=== PATIENT | male | born 1955 | race Caucasian/White ===

== ENCOUNTER → 2017-01-29 | Outpatient (CLI) | payer OTHER ==
[~2017-01-29] MED LIST: ASP325T PO; ATOR80TA PO; CLOP75TA PO; FOLI0.8T; HYDR-623 PO; LEVO88TA28; LISI10TA PO; LVT.1T PO; MTX2.5T; NEBI2.5T5 PO; OMEG-12 PO; PRD10T PO; PRD5T; PRD5T PO; RNT150T PO; SULF1TAB38; SULF1TAB7 PO; omeprazole PO
== END ==
LOC: CARD 09:01
PROVIDERS: ATTEND Internal Medicine Cardiovascular Disease
DX: I25.10 Atherosclerotic heart disease of native coronary artery without angina pectoris (principal); I63.9 Cerebral infarction, unspecified; I65.23 Occlusion and stenosis of bilateral carotid arteries; I10 Essential (primary) hypertension; E78.2 Mixed hyperlipidemia; I34.0 Nonrheumatic mitral (valve) insufficiency
CPT/HCPCS: 93306

== ENCOUNTER → 2017-01-31 | Outpatient (CLI) | payer OTHER ==
[~2017-01-31] MED LIST changes: +CATHETER FLUSH 10 ML SYR IV PRN
[2017-01-31 09:31] VITALS: BP 126/63
[2017-01-31 09:35] VITALS: BP 118/64
--- NOTE | 2017-02-01 11:15 | STRESS TEST ---
DATE OF SERVICE: 01/31/2017 EXERCISE MYOVIEW STRESS TEST REPORT REFERRING PHYSICIAN: Dr. Beaulieu. Baseline heart rate is 69. Baseline blood pressure 126/63. Baseline EKG is sinus rhythm with no ischemic changes. In summary, the patient was injected with 10.77 mCi of technetium-99 Myoview and the resting images were obtained. Then, the patient started exercising with a baseline heart rate, blood pressure and EKG mentioned above. The patient was able to exercise for a total of 6 minutes 30 seconds on standard Don protocol, achieving maximum heart rate of 147, which is 92% of maximum expected heart rate. With peak exercise level, the EKG was showing minimal nondiagnostic changes. Blood pressure was 150/78. During recovery, heart rate and blood pressure returned to baseline. EKG returned to baseline. The resting and stress images were reviewed and compared in the short axis, horizontal long axis, and vertical long axis views. Review of the images showed good radiotracer uptake with no significant ischemia or infarction. SSS is 3, SDS 3, TID value 1.05. On the gated images, the left ventricle appeared to be normal size with normal contractility. Calculated ejection fraction is 64%. CONCLUSION: 1. Fair exercise tolerance. A total of 6 minutes 30 seconds on standard Don protocol, total of 7.9 METS achieving 92% of maximum expected heart rate. 2. Appropriate heart rate and blood pressure response to exercise, returned to baseline during recovery. 3. Minimal nondiagnostic EKG changes with exercise, returned to baseline during recovery. 4. No ischemia or infarction on SPECT images. 5. Normal left ventricular size with normal contractility. Calculated ejection fraction is 64%. Job ID: [id number] DocumentID: [id number] Dictated Date: 01/31/2017 14:47:39 Bottle Gauger Date: 01/31/2017 19:37:58 Dictated By: ALEA JAVED MD
== END ==
LOC: CARD 07:51
PROVIDERS: ATTEND Internal Medicine Cardiovascular Disease
DX: I25.10 Atherosclerotic heart disease of native coronary artery without angina pectoris (principal); I63.9 Cerebral infarction, unspecified; I65.23 Occlusion and stenosis of bilateral carotid arteries; I10 Essential (primary) hypertension; I34.0 Nonrheumatic mitral (valve) insufficiency; E78.2 Mixed hyperlipidemia
CPT/HCPCS: 78452; 93017

== ENCOUNTER → 2017-04-27 | Outpatient (CLI) | payer OTHER ==
[~2017-04-27] MED LIST changes: -CATHETER FLUSH 10 ML SYR IV PRN
[2017-04-27 10:43] LABS: BUN/CREATININE RATIO 20; CREATININE SERUM 1.07 MG/DL (0.60-1.30); GFR ESTIMATED > 60
== END ==
LOC: LAB 09:45
DX: R91.8 Other nonspecific abnormal finding of lung field (principal)
CPT/HCPCS: 36415; 82565; 84520

== ENCOUNTER → 2017-04-27 | Outpatient (CLI) | payer OTHER ==
--- NOTE | 2017-04-27 11:19 | Diagnostic Imaging Report ---
PROCEDURE: CT sinuses without contrast TECHNIQUE: Multiple contiguous axial images were obtained through the sinuses without the use of intravenous contrast. Coronal and sagittal reformations were then performed. INDICATION: Sinus pressure and cough. No prior studies are available for comparison. Extensive postsurgical changes are identified to the paranasal sinuses. Patient has undergone an ethmoidectomy. There has been resection of the nasal turbinates and uncinate processes. There has been resection of the medial hair of maxillary sinuses. Chronic osseous thickening of the sphenoid and maxillary sinus hair is noted. No discrete mass is identified. Portions of the nasal septum remain. The frontal sinus is hypoplastic. Bilateral globes and orbits are unremarkable. The mastoid air cells are opacified. IMPRESSION: Extensive postsurgical changes to the paranasal sinuses. No discrete mass is detected. Dictated by: Dictated on workstation # [id number]
== END ==
LOC: RAD 04-26 13:08
PROVIDERS: ATTEND Otolaryngology Otolaryngology/Facial Plastic Surgery
DX: J32.4 Chronic pansinusitis (principal); J34.89 Other specified disorders of nose and nasal sinuses; Z98.890 Other specified postprocedural states
CPT/HCPCS: 70486

== ENCOUNTER → 2017-04-27 | Outpatient (CLI) | payer OTHER ==
--- NOTE | 2017-04-27 11:29 | Diagnostic Imaging Report ---
PROCEDURE: CT chest with contrast only. TECHNIQUE: Multiple contiguous axial images were obtained through the chest after administration of intravenous contrast. INDICATION: Isatu's granulomatosis. COMPARISON: Comparison is made with prior CT chest from 05/15/2014. FINDINGS: No axillary lymphadenopathy is detected. Right paratracheal lymph node is stable with short axis measurement of approximately 12 mm. No hilar lymphadenopathy is identified. No pericardial or pleural fluid is detected. Parenchymal evaluation does show interval development of numerous noncalcified nodular masses involving predominantly bilateral upper lobes, with the exception of a nodule in the left lower lobe measuring 10 mm, image 37. The numerous larger masses in the upper lobes are cavitary. Dominant mass in the right apex with cavitation measures approximately 4.6 cm AP x 3.9 cm transverse. Cavitary lesion in the left upper lobe measures 5.1 cm AP x 3.6 cm transverse. There are numerous additional noncavitary masses. The upper abdomen demonstrates hepatic steatosis. The bony structures are nonacute. IMPRESSION: Interval development of multiple bilateral pulmonary masses, majority of which are involving the upper lobes and several of which are cavitary. 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 Continued followup is recommended to confirm clearing. Dictated by: Dictated on workstation # [id number]
== END ==
LOC: RAD 09:41
PROVIDERS: ATTEND Internal Medicine Rheumatology
DX: M31.30 Wegener's granulomatosis without renal involvement (principal); R91.8 Other nonspecific abnormal finding of lung field
CPT/HCPCS: 71260

== ENCOUNTER 2017-05-10 03:04 | Emergency (ER) | payer OTHER ==
[~2017-05-10] VITALS: Ht 167.6 cm; Wt 87.1 kg
--- OUTSIDE RECORDS SUMMARY | 2017-05-10 03:10 | XMS REPORT | Clinical Summary ---
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 If you do not see the information that you expected, contact Release of Information in the Health Information Management department at [phone] for further assistance in locating additional records.[facility] Allergies Active Allergy Reactions Severity Noted Date Comments Cetirizine High 02/27/2006 Allergy recorded in SMS: CETIRIZINE~Reactions: ANAPHYLAXIS Current Medications Prescription Sig. Disp. Refills Start End Date Status Date DOCOSAHEXANOIC ACID/EPA Take by mouth. Active (FISH OIL PO) trimethoprim-sulfamethoxa Take 1 Tab by mouth twice Active zole (BACTRIM) 80-400 mg daily. tablet lisinopril (PRINIVIL; Take 10 mg by mouth Active ZESTRIL) 10 mg tablet daily. PREDNISONE PO Take by mouth. Active clopiDOGrel (PLAVIX) 75 Take 75 mg by mouth Active mg tablet daily. atorvastatin (LIPITOR) 40 Take 40 mg by mouth Active mg tablet daily. nebivolol (BYSTOLIC) 2.5 Take 2.5 mg by mouth Active mg Tab tablet daily. RANITIDINE HCL PO Take 150 mg by mouth. Active aspirin EC 81 mg tablet Take 81 mg by mouth Active daily. levothyroxine (SYNTHROID) Take 112 mcg by mouth Active 112 mcg tablet daily. sildenafil(+) (VIAGRA) 50 Take 1 Tab by mouth as 10 Tab 11 11/25/19 Active mg tablet Needed for Erectile 15 dysfunction. 30-60 min prior to sexual activity Active Problems Problem Noted Date Prostate cancer screening Overview: PSA 07/30/12 0.05 PSA 11/20/14 0.06 L ast Assessment & Plan: PSA stable. Return to clinic in 2 years with PSA. Urethral stricture Overview: SP Tube Placement x3 Deep bulbar stricture and bladder neck stenosis DVIU -- 03/19/2006; Dr. Thurston. Buccal Mucosa Urethroplasty -- 03/19/2006; Dr. Thurston. [id number]: gradually worsening slowing of stream, splayed stream 12/31/14: 3-4mm stricture at proximal prior repair site PVR: 12/31/14: 17 mls L ast Assessment & Plan: Discussed with patient the options for his recurrent urethral stricture. He has done well for nearly ten years after his initial repair. His symptoms are mild at this time. He is not overly eager to pursue another operation. Should we proceed with operative repair, options would be direct visualization internal urethrotomy (DVIU) vs. excision and primary anastomosis (EPA). Would be reasonable to start with DVIU; EPA would give better chance at lasting success, with the downside of a more invasive operation. For now he will consider his options. - Return to clinic 6 months for symptom check. ED (erectile dysfunction) Last Assessment & Plan: New rx for viagra given to patient today. Patient advised on how to take it and possible adverse effects. Family History Medical History Relation Name Comments Cancer-Prostate Brother Bladder Cancer Father Cancer Father Diabetes Father Heart Attack Father Hypertension Father Relation Name Status Comments Brother Father Social History Tobacco Use Types Packs/Day Years Used Date Never Smoker Smokeless Tobacco: Never Used Alcohol Use Drinks/Week oz/Week Comments No Sex Assigned at Date Recorded Not on file Last Filed Vital Signs Vital Sign Reading Time Taken Blood Pressure 123/75 07/08/2015 10:53 AM CDT Pulse 63 07/08/2015 10:53 AM CDT Temperature - - Respiratory Rate - - Oxygen Saturation - - Inhaled Oxygen - - Concentration Weight 95.3 kg (210 lb 3.2 oz) 07/08/2015 10:53 AM CDT Height 167.6 cm (5' 6") 07/08/2015 10:53 AM CDT Body Mass Index 33.93 07/08/2015 10:53 AM CDT Plan of Treatment Health Maintenance Due Date Last Done Comments HEPATITIS C SCREENING 1955 PHYSICAL (COMPREHENSIVE) 11/09/1962 EXAM PERTUSSIS VACCINE 11/09/1966 TETANUS VACCINE 11/09/1972 COLORECTAL CANCER 11/09/2005 SCREENING SHINGLES VACCINE 2015 INFLUENZA VACCINE 11/07/2016 Results Not on filefrom Last 3 Months
--- OUTSIDE RECORDS SUMMARY | 2017-05-10 03:10 | XMS REPORT | Continuity of Care Document ---
Author Author [facility] Address Unknown Phone Unavailable Allergies Active Description Code Type Severity Reaction Onset Reported/Identified Relationship to Patient Clinical Status Yes cetirizine [id number] Drug Allergy Mild N/A 04/08/2009 Medications There is no data. Problems Date Dx Coded Attending Type Code Diagnosis Diagnosed By 05/01/2012 CLAUDIA CRAMER DO V03.82 PPV23 (PNEUMOVAX) DX 05/01/2012 CLAUDIA CRAMER DO V06.1 TDAP DX 05/01/2012 V03.82 PPV23 ( PNEUMOVAX) DX 05/01/2012 V06.1 TDAP DX 11/08/2012 ABISAI PRYOR DO Ot V57.1 PHYSICAL THERAPY NEC 11/08/2012 ABISAI PRYOR DO Ot V58.49 OTHER SPECIFIED AFTERCARE FOLLOWING SURG 02/03/2014 V04.81 FLU SHOT 05/18/2014 ALY JONES, DARRELL Cruz Ot 446.4 05/18/2014 ALY JONES, DARRELL Cruz Ot 786.05 05/18/2014 DARRELL LU MD Ot 786.2 05/18/2014 DARRELL LU MD Ot 793.19 07/29/2014 Ot V72.84 07/29/2014 ALEA JAVED MD Ot 272.4 07/29/2014 ALEA JAVED MD Ot 401.9 07/29/2014 ALEA JAVED MD Ot 414.00 07/29/2014 ALEA JAVED MD Ot 433.10 07/29/2014 ALEA JAVED MD Ot 434.91 07/29/2014 ALEA JAVED MD Ot 272.4 07/29/2014 ALEA JAVED MD Ot 401.9 07/29/2014 ALEA JAVED MD Ot 414.00 07/29/2014 ALEA JAVED MD Ot 433.10 07/29/2014 ALEA JAVED MD Ot 434.91 07/29/2014 DARRELL LU MD Ot 446.4 07/29/2014 DARRELL LU MD Ot 786.05 07/29/2014 DARRELL LU MD Ot 786.2 07/29/2014 DARRELL LU MD Ot 793.19 09/11/2016 ALEA JAVED MD Ot 272.4 HYPERLIPIDEMIA NEC/NOS 09/11/2016 ALEA JAVED MD Ot 401.9 HYPERTENSION NOS 09/11/2016 ALEA JAVED MD Ot 414.00 CORON ATHEROSCLER NOS TYPE VESSEL, NATIV 09/11/2016 ALEA JAVED MD Ot 433.10 CAROTID ARTERY OCCLUSION W O CEREBRAL IN 09/11/2016 ALEA JAVED MD Ot 434.91 CEREBRAL ART OCCLUSION NOS W CEREBRAL IN 10/24/2016 Ot V72.84 EXAM PRE- OPERATIVE NOS 10/24/2016 ALEA JAVED MD Ot 272.4 HYPERLIPIDEMIA NEC/NOS 10/24/2016 ALEA JAVED MD Ot 401.9 HYPERTENSION NOS 10/24/2016 ALEA JAVED MD Ot 414.00 CORON ATHEROSCLER NOS TYPE VESSEL, NATIV 10/24/2016 ALEA JAVED MD Ot 433.10 CAROTID ARTERY OCCLUSION W O CEREBRAL IN 10/24/2016 ALEA JAVED MD Ot 434.91 CEREBRAL ART OCCLUSION NOS W CEREBRAL IN 10/24/2016 DARRELL LU MD Ot 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 10/24/2016 DARRELL LU MD Ot 786.05 SHORTNESS OF BREATH 10/24/2016 DARRELL LU MD Ot 786.2 COUGH 10/24/2016 DARRELL LU MD Ot 793.19 OTHER NONSPECIFIC ABNORMAL FINDING OF [place] 01/22/2017 Ot V72.84 EXAM PRE- OPERATIVE NOS 01/22/2017 ALEA JAVED MD Ot 272.4 HYPERLIPIDEMIA NEC/NOS 01/22/2017 ALEA JAVED MD Ot 401.9 HYPERTENSION NOS 01/22/2017 ALEA JAVED MD Ot 414.00 CORON ATHEROSCLER NOS TYPE VESSEL, NATIV 01/22/2017 ALEA JAVED MD Ot 433.10 CAROTID ARTERY OCCLUSION W O CEREBRAL IN 01/22/2017 ALEA JAVED MD Ot 434.91 CEREBRAL ART OCCLUSION NOS W CEREBRAL IN 01/22/2017 DARRELL LU MD Ot 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 01/22/2017 DARRELL LU MD Ot 786.05 SHORTNESS OF BREATH 01/22/2017 DARRELL LU MD Ot 786.2 COUGH 01/22/2017 DARRELL LU MD Ot 793.19 OTHER NONSPECIFIC ABNORMAL FINDING OF [place] 01/23/2017 Ot V72.84 EXAM PRE- OPERATIVE NOS 01/23/2017 ALEA JAVED MD Ot 272.4 HYPERLIPIDEMIA NEC/NOS 01/23/2017 ALEA JAVED MD Ot 401.9 HYPERTENSION NOS 01/23/2017 ALEA JAVED MD Ot 414.00 CORON ATHEROSCLER NOS TYPE VESSEL, NATIV 01/23/2017 ALEA JAVED MD Ot 433.10 CAROTID ARTERY OCCLUSION W O CEREBRAL IN 01/23/2017 ALEA JAVED MD Ot 434.91 CEREBRAL ART OCCLUSION NOS W CEREBRAL IN 01/23/2017 DARRELL LU MD Ot 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 01/23/2017 DARRELL LU MD Ot 786.05 SHORTNESS OF BREATH 01/23/2017 DARRELL LU MD Ot 786.2 COUGH 01/23/2017 DARRELL LU MD Ot 793.19 OTHER NONSPECIFIC ABNORMAL FINDING OF V[place]ENT[place] 01/29/2017 Ot V72.84 EXAM PRE- OPERATIVE NOS 01/29/2017 ALEA JAVED MD Ot 272.4 HYPERLIPIDEMIA NEC/NOS 01/29/2017 ALEA JAVED MD Ot 401.9 HYPERTENSION NOS 01/29/2017 ALEA JAVED MD Ot 414.00 CORON ATHEROSCLER NOS TYPE VESSEL, NATIV 01/29/2017 ALEA JAVED MD Ot 433.10 CAROTID ARTERY OCCLUSION W O CEREBRAL IN 01/29/2017 ALEA JAVED MD Ot 434.91 CEREBRAL ART OCCLUSION NOS W CEREBRAL IN 01/29/2017 DARRELL LU MD Ot 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 01/29/2017 DARRELL LU MD Ot 786.05 SHORTNESS OF BREATH 01/29/2017 DARRELL LU MD Ot 786.2 COUGH 01/29/2017 DARRELL LU MD Ot 793.19 OTHER NONSPECIFIC ABNORMAL FINDING OF VICENTE 03/07/2017 ALEA JAVED MD Ot E78.2 MIXED HYPERLIPIDEMIA 03/07/2017 ALEA JAVED MD Ot I10 ESSENTIAL (PRIMARY) HYPERTENSION 03/07/2017 ALEA JAVED MD Ot I25.10 ATHSCL HEART DISEASE OF [place] CORONARY 03/07/2017 ALEA JAVED MD Ot I34.0 NONRHEUMATIC MITRAL (VALVE) INSUFFICIENC 03/07/2017 ALEA JAVED MD Ot I63.9 CEREBRAL INFARCTION, UNSPECIFIED 03/07/2017 ALEA JAVED MD Ot I65.23 OCCLUSION AND STENOSIS OF BILATERAL [place] 03/07/2017 ALEA JAVED MD Ot E78.2 MIXED HYPERLIPIDEMIA 03/07/2017 ALEA JAVED MD Ot I10 ESSENTIAL (PRIMARY) HYPERTENSION 03/07/2017 ALEA JAVED MD Ot I25.10 ATHSCL HEART DISEASE OF [place] CORONARY 03/07/2017 ALEA JAVED MD Ot I34.0 NONRHEUMATIC MITRAL (VALVE) INSUFFICIENC 03/07/2017 ALEA JAVED MD Ot I63.9 CEREBRAL INFARCTION, UNSPECIFIED 03/07/2017 ALEA JAVED MD Ot I65.23 OCCLUSION AND STENOSIS OF BILATERAL [place] 03/07/2017 ALEA JAVED MD Ot E78.2 MIXED HYPERLIPIDEMIA 03/07/2017 ALEA JAVED MD Ot I10 ESSENTIAL (PRIMARY) HYPERTENSION 03/07/2017 ALEA JAVED MD Ot I25.10 ATHSCL HEART DISEASE OF [place] CORONARY 03/07/2017 ALEA JAVED MD Ot I34.0 NONRHEUMATIC MITRAL (VALVE) INSUFFICIENC 03/07/2017 ALEA JAVED MD Ot I63.9 CEREBRAL INFARCTION, UNSPECIFIED 03/07/2017 ALEA JAVED MD Ot I65.23 OCCLUSION AND STENOSIS OF BILATERAL [place] 03/07/2017 ALEA JAVED MD Ot E78.2 MIXED HYPERLIPIDEMIA 03/07/2017 ALEA JAVED MD Ot I10 ESSENTIAL (PRIMARY) HYPERTENSION 03/07/2017 ALEA JAVED MD Ot I25.10 ATHSCL HEART DISEASE OF [place] CORONARY 03/07/2017 ALEA JAVED MD Ot I34.0 NONRHEUMATIC MITRAL (VALVE) INSUFFICIENC 03/07/2017 ALEA JAVED MD Ot I63.9 CEREBRAL INFARCTION, UNSPECIFIED 03/07/2017 ALEA JAVED MD Ot I65.23 OCCLUSION AND STENOSIS OF BILATERAL [place] 03/22/2017 Ot V72.84 EXAM PRE- OPERATIVE NOS 03/22/2017 ALEA JAVED MD Ot 272.4 HYPERLIPIDEMIA NEC/NOS 03/22/2017 ALEA JAVED MD Ot 401.9 HYPERTENSION NOS 03/22/2017 ALEA JAVED MD Ot 414.00 CORON ATHEROSCLER NOS TYPE VESSEL, NATIV 03/22/2017 ALEA JAVED MD Ot 433.10 CAROTID ARTERY OCCLUSION W O CEREBRAL IN 03/22/2017 ALEA JAVED MD Ot 434.91 CEREBRAL ART OCCLUSION NOS W CEREBRAL IN 03/22/2017 DARRELL LU MD Ot 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 03/22/2017 DARRELL LU MD Ot 786.05 SHORTNESS OF BREATH 03/22/2017 DARRELL LU MD Ot 786.2 COUGH 03/22/2017 DARRELL LU MD Ot 793.19 OTHER NONSPECIFIC ABNORMAL FINDING OF VICENTE 03/22/2017 ALEA JAVED MD Ot E78.2 MIXED HYPERLIPIDEMIA 03/22/2017 ALEA JAVED MD Ot I10 ESSENTIAL (PRIMARY) HYPERTENSION 03/22/2017 ALEA JAVED MD Ot I25.10 ATHSCL HEART DISEASE OF [place] CORONARY 03/22/2017 ALEA JAVED MD Ot I34.0 NONRHEUMATIC MITRAL (VALVE) INSUFFICIENC 03/22/2017 ALEA JAVED MD Ot I63.9 CEREBRAL INFARCTION, UNSPECIFIED 03/22/2017 ALEA JAVED MD Ot I65.23 OCCLUSION AND STENOSIS OF BILATERAL [place] 03/22/2017 ALEA JAVED MD Ot E78.2 MIXED HYPERLIPIDEMIA 03/22/2017 ALEA JAVED MD Ot I10 ESSENTIAL (PRIMARY) HYPERTENSION 03/22/2017 ALEA JAVED MD Ot I25.10 ATHSCL HEART DISEASE OF [place] CORONARY 03/22/2017 ALEA JAVED MD Ot I34.0 NONRHEUMATIC MITRAL (VALVE) INSUFFICIENC 03/22/2017 ALEA JAVED MD Ot I63.9 CEREBRAL INFARCTION, UNSPECIFIED 03/22/2017 ALEA JAVED MD Ot I65.23 OCCLUSION AND STENOSIS OF BILATERAL [place] 03/23/2017 ALEA JAVED MD Ot E78.2 MIXED HYPERLIPIDEMIA 03/23/2017 ALEA JAVED MD Ot I10 ESSENTIAL (PRIMARY) HYPERTENSION 03/23/2017 ALEA JAVED MD Ot I25.10 ATHSCL HEART DISEASE OF [place] CORONARY 03/23/2017 ALEA JAVED MD Ot I34.0 NONRHEUMATIC MITRAL (VALVE) INSUFFICIENC 03/23/2017 ALEA JAVED MD Ot I63.9 CEREBRAL INFARCTION, UNSPECIFIED 03/23/2017 ALEA JAVED MD Ot I65.23 OCCLUSION AND STENOSIS OF BILATERAL [place] 04/11/2017 ALEA JAVED MD Ot E78.2 MIXED HYPERLIPIDEMIA 04/11/2017 ALEA JAVED MD Ot I10 ESSENTIAL (PRIMARY) HYPERTENSION 04/11/2017 ALEA JAVED MD Ot I25.10 ATHSCL HEART DISEASE OF [place] CORONARY 04/11/2017 ALEA JAVED MD Ot I34.0 NONRHEUMATIC MITRAL (VALVE) INSUFFICIENC 04/11/2017 ALEA JAVED MD Ot I63.9 CEREBRAL INFARCTION, UNSPECIFIED 04/11/2017 ALEA JAVED MD Ot I65.23 OCCLUSION AND STENOSIS OF BILATERAL [place] 04/24/2017 ALEA JAVED MD Ot E78.2 MIXED HYPERLIPIDEMIA 04/24/2017 ALEA JAVED MD Ot I10 ESSENTIAL (PRIMARY) HYPERTENSION 04/24/2017 ALEA JAVED MD Ot I25.10 ATHSCL HEART DISEASE OF [place] CORONARY 04/24/2017 ALEA JAVED MD Ot I34.0 NONRHEUMATIC MITRAL (VALVE) INSUFFICIENC 04/24/2017 ALEA JAVED MD Ot I63.9 CEREBRAL INFARCTION, UNSPECIFIED 04/24/2017 ALEA JAVED MD Ot I65.23 OCCLUSION AND STENOSIS OF BILATERAL [place] 04/25/2017 ALEA JAVED MD Ot E78.2 MIXED HYPERLIPIDEMIA 04/25/2017 ALEA JAVED MD Ot I10 ESSENTIAL (PRIMARY) HYPERTENSION 04/25/2017 ALEA JAVED MD Ot I25.10 ATHSCL HEART DISEASE OF [place] CORONARY 04/25/2017 ALEA JAVED MD Ot I34.0 NONRHEUMATIC MITRAL (VALVE) INSUFFICIENC 04/25/2017 ALEA JAVED MD, Ot I63.9 CEREBRAL INFARCTION, UNSPECIFIED 04/25/2017 ALEA JAVED MD, Ot I65.23 OCCLUSION AND STENOSIS OF BILATERAL [place] 04/30/2017 STEVIE SPRINGER MD, Ot J32.4 CHRONIC PANSINUSITIS 04/30/2017 STEVIE SPRINGER MD, Ot J34.89 OTHER SPECIFIED DISORDERS OF NOSE AND NA 04/30/2017 STEVIE SPRINGER MD, Ot Z98.890 OTHER SPECIFIED POSTPROCEDURAL STATES 04/30/2017 DARRELL LU MD, Ot 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 Results Test Result Range [id number] - 04/27/17 10:13 Serum or plasma urea nitrogen measurement (mass/volume) 21 mg/dL 7-18 Serum or plasma creatinine measurement (mass/volume) 1.07 mg/dL 0.60-1.30 Serum or plasma urea nitrogen/creatinine mass ratio 20 NRG Serum or plasma creatinine measurement with calculation of estimated glomerular filtration rate > NRG Encounters ACCT No. Visit Date/Time Discharge Status Pt. Type Provider Facility Loc./Unit Complaint [id number] 02/03/2014 16:03:00 02/03/2014 23:59:59 CLS Outpatient [id number] 05/01/2012 15:15:00 05/01/2012 23:59:59 CLS Outpatient CLAUDIA CRAMER DO [id number] 04/27/2017 09:45:00 04/27/2017 23:59:59 CLS Outpatient VIDAL MARIE MD [facility] ABNORMAL FINDING OF LUNGS [id number] 04/27/2017 09:41:00 04/27/2017 23:59:59 CLS Outpatient DARRELL LU MD [facility] RAD OTHER NONSPECIFIC ABN FINDING OF LUNG [id number] 04/27/2017 09:25:00 04/27/2017 23:59:59 CLS Outpatient RACHEAL JONES, STEVIE Hanna [facility] CHRONIC PANSINUSITIS [id number] 01/31/2017 07:51:00 01/31/2017 23:59:59 CLS Outpatient ALEA JAVED MD [facility] CARD CAD,CVA,HTN [id number] 01/29/2017 09:01:00 01/29/2017 23:59:59 CLS Outpatient ALEA JAVED MD [facility] CARD CAD,CVA,HTN [id number] 05/15/2014 08:48:00 05/15/2014 23:59:59 CLS Outpatient ALY JONES, DARRELL Cruz [facility] RAD WAGENER'S DISEASE 446.4, COUGH,SOA,ABN CHEST XRAY [id number] 04/28/2014 10:00:00 04/28/2014 23:59:59 CLS Outpatient ALEA JAVED MD [facility] CARD CAD,CVA,HTN,HLP [id number] 04/28/2014 09:57:00 04/28/2014 23:59:59 CLS Outpatient ALEA JAVED MD [facility] CARD CAD,CVA,HTN,HLP [id number] 10/21/2012 15:09:00 11/08/2012 11:31:00 DIS Outpatient ABISAI PRYOR DO [facility] REHAB S/P L SHLD SCOPE OPEN REPAIR ROTATOR CUFF [id number] 07/29/2014 13:22:00 Document Registration
[2017-05-10] MEDS ORDERED: TRANEXAMIC ACID 100 MG/ML 10 ML INJECTION IV ONE ×2 (03:38→03:45)
[2017-05-10 04:00] LABS: BASOPHILS # (AUTO) 0.1 10^3/uL (0.0-0.1); BASOPHILS % (AUTO) 0 % (0-10); EOSINOPHILS # (AUTO) 0.2 10^3/uL (0.0-0.3); EOSINOPHILS % (AUTO) 2 % (0-10); HEMATOCRIT 37 % (40-54); HEMOGLOBIN 12.4 G/DL (13.3-17.7); LYMPHOCYTES # (AUTO) 1.9 X 10^3 (1.0-4.0); LYMPHOCYTES % (AUTO) 16 % (12-44); MEAN CORPUSCULAR HEMOGLOBIN 30 PG (25-34); MEAN CORPUSCULAR HGB CONC 34 G/DL (32-36); MEAN CORPUSCULAR VOLUME 90 FL (80-99); MONOCYTES # (AUTO) 1.4 X 10^3 (0.0-1.0); MONOCYTES % (AUTO) 12 % (0-12); NEUTROPHILS # (AUTO) 8.2 X 10^3 (1.8-7.8); NEUTROPHILS % (AUTO) 70 % (42-75); PLATELET COUNT 347 10^3/uL (130-400); RED BLOOD COUNT 4.08 10^6/uL (4.35-5.85); RED CELL DISTRIBUTION WIDTH 14.1 % (10.0-14.5); WHITE BLOOD COUNT 11.6 10^3/uL (4.3-11.0)
[2017-05-10 04:20] LABS: PROTHROMBIN TIME PATIENT 13.6 SEC (12.2-14.7)
[2017-05-10] MEDS ORDERED: SULF1TAB35 PO (05:57)
--- NOTE | 2017-05-10 05:57 | ED EENT ---
History of Present Illness General Chief Complaint: Nasal Problems Stated Complaint: BLOODY NOSE Nursing Triage Note: pt presents to ed with complaint of nose bleed. states the nose bleed started at 0130 this morning. pt started rotuxin, a chemo drug, for his wegners, this week. Source: patient History of Present Illness Date Seen by Provider: May 10, 2017 Time Seen by Provider: 03:30 Initial Comments PT ARRIVES VIA POV STATES HE WOKE UP AT 0130 AND NOSE WAS BLEEDING--BLOOD COMING FROM BOTH NOSTRILS PT HAS ISATU'S GRANULOMATOSIS, AND PRIMARILY IT HAS AFFECTED HIS NOSE, SINUSES , EARS AND LUNGS. HAS SEPTAL PERFORATION/EROSION WAS DX 14 YEARS AGO ( AT THE TIME OF SINUS SURGERY) , AND IN THE LAST COUPLE OF MONTHS HAS HAD A FLARE HAD CT OF SINUSES AND ENDOSCOPY DONE BY DR. SPRINGER 2 WEEKS AGO. PT WAS STARTED ON RITUXAN ON Sunday05/08/17 ( HAS TAKEN BEFORE, 6 YEARS AGO) AND DID NOT HAVE ANY PROBLEMS PT STATES THE LEFT SIDE OF HIS NOSE HAS BEEN VERY SORE THE LAST FEW DAYS. PT USES DAILY SINUS RINSE AND OCCASIONALLY WILL HAVE SLIGHT BLEEDING, BUT HAS NEVER HAD A NOSE BLEED THAT HAS GONE ON THIS LONG. PT DENIES FEVER. PT TAKES PLAVIX AND PREDNISONE DAILY. PCP: DR. BILLY ENT: DR. 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 PROCESSOR: [place] Allergies and Home Medications Allergies Coded Allergies: cetirizine (Unverified Allergy, Mild, 04/08/09) Home Medications Aspirin 325 Mg Tab, 325 MG PO DAILY, (Reported) Atorvastatin Calcium 80 Mg Tablet, 80 MG PO HS, (Reported) Clopidogrel Bisulfate 75 Mg Tablet, 75 MG PO DAILY, (Reported) Hydrocodone Bit/Acetaminophen 1 Tab Tablet, 1 EACH PO Q 4 - 6 HRS PRN, (Reported ) Levothyroxine Sodium 100 Mcg Tablet, 100 MCG PO DAILY, (Reported) Lisinopril 10 Mg Tablet, 10 MG PO DAILY, (Reported) Nebivolol Hcl 2.5 Mg Tablet, 2.5 MG PO HS, (Reported) [place]ton-3/Dha/Epa/Fish Oil 1 Each Capsule.dr, 3,000 MG PO DAILY, (Reported) TAKES 3 ONCE DAILY Prednisone 5 Mg Tab, 5 MG PO DAILY, (Reported) Ranitidine Hcl 150 Mg Tablet, 150 MG PO BID, (Reported) Sulfamethoxazole/Trimethoprim 1 Each Tablet, 1 TAB PO M,W,F, (Reported) Sulfamethoxazole/Trimethoprim 1 Each Tablet, 1 EACH PO BID, #20 Prescribed by: SABRINA AGUILERA on 05/10/17 0557 Review of Systems Constitutional: no symptoms reported, No chills, No diaphoresis, No fever Eyes: No Symptoms Reported Ears: See HPI Nose: see HPI, epistaxis, pain Mouth: no symptoms reported Throat: no symptoms reported Respiratory: no symptoms reported Cardiovascular: no symptoms reported Neurological: No Symptoms Reported Hematologic/Lymphatic: See HPI Immunological/Allergic: see HPI Past Khgyvvp-Lavvrw-Jkpyqg Hx Patient Social History Alcohol Use: Occasionally Uses Recreational Drug Use: No Smoking Status: Never a Smoker Recent Foreign Travel: No Contact w/Someone Who Travel: No Recent Infectious Disease Expo: No Recent Hopitalizations: No Immunizations Up To Date Date of Pneumonia Vaccine: May 10, 2011 Date of Influenza Vaccine: Feb 08, 2012 Seasonal Allergies Seasonal Allergies: Yes Surgeries History of Surgeries: Yes (SINUS SURGERY 2002; LEFT SHOULDER SCOPE/ROTATOR CUFF REPAIR;SUPRAPUBIC CATH X 3; URETHRAL RECONSTRUCTION; CARDIAC CATH--STENTS X 3; BILATERAL TIB -FIB FRACTURES/ORIF; COLONOSCOPY) Surgeries: Bladder Surgery, Coronary Stent, Orthopedic Respiratory History of Respiratory Disorde: Yes (ISATU'S GRANULOMATOSIS) Respiratory Disorders: Sleep Apnea Cardiovascular History of Cardiac Disorders: Yes (CARDIAC STENTS X 3) Cardiac Disorders: Coronary Artery Disease, High Cholesterol, Hypertension Neurological History of Neurological Disord: No Genitourinary History of Genitourinary Disor: Yes (URETHRAL RECONSTRUCTION; SUPRAPUBIC CATHS X 3) Gastrointestinal History of Gastrointestinal Di: Yes Gastrointestinal Disorders: Gastroesophageal Reflux Musculoskeletal History of Musculoskeletal Dis: Yes (BILATERAL TIB-FIB FRACTURES /ORIF) Endocrine History of Endocrine Disorders: Yes Endocrine Disorders: Hypothyroidsim, Diabetes, Non-Insulin dep HEENT History of HEENT Disorders: Yes (ISATU'S GRANULOMATOSIS--NOSE/SINUSES/EARS/ LUNGS AFFECTED; NASAL AND SINUS DESTRUCTION / SEPTAL PERFORATION DUE TO THIS DISEASE. ) Cancer History of Cancer: No Psychosocial History of Psychiatric Problem: No Integumentary History of Skin or Integumenta: No Blood Transfusions History of Blood Disorders: No Physical Exam Vital Signs Vital Sign - Last 12Hours 05/10/17 03:24 Temp 98.0 Pulse 78 Resp 20 B/P (MAP) 119/75 (90) Pulse Ox 97 O2 Delivery Room Air General Appearance: WD/WN, no apparent distress Eyes: bilateral eye normal inspection Nose: active bleeding (MILD CONSTANT OOZE OF BLOOD, APPEARS TO BE MOSTLY FROM LEFT NARE, ANATOMY IS VERY DISTORTED. NOSE IS DEFORMED AND VERY SMALL EXTERNALLY. ) Mouth/Throat: other (FRESH BLOOD/FRESH CLOT IN POSTERIOR PHARYNX. 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 PT OBSERVED IN ER FOR OVER 3 HOURS AND NO NEW BLEEDING ANTERIORLY OR POSTERIORLY. Progress/Results/Core Measures Results/Orders Lab Results Laboratory Tests Test 05/10/17 03:50 Range/Units White Blood Count 11.6 H 4.3-11.0 10^3/uL Red Blood Count 4.08 L 4.35-5.85 10^6/uL Hemoglobin 12.4 L 13.3-17.7 G/DL Hematocrit 37 L 40-54 % Mean Corpuscular Volume 90 80-99 FL Mean Corpuscular Hemoglobin 30 25-34 PG Mean Corpuscular Hemoglobin Concent 34 32-36 G/DL Red Cell Distribution Width 14.1 10.0-14.5 % Platelet Count 347 130-400 10^3/uL Mean Platelet Volume 9.0 7.4-10.4 FL Neutrophils (%) (Auto) 70 42-75 % Lymphocytes (%) (Auto) 16 12-44 % Monocytes (%) (Auto) 12 0-12 % Eosinophils (%) (Auto) 2 0-10 % Basophils (%) (Auto) 0 0-10 % Neutrophils # (Auto) 8.2 H 1.8-7.8 X 10^3 Lymphocytes # (Auto) 1.9 1.0-4.0 X 10^3 Monocytes # (Auto) 1.4 H 0.0-1.0 X 10^3 Eosinophils # (Auto) 0.2 0.0-0.3 10^3/uL Basophils # (Auto) 0.1 0.0-0.1 10^3/uL Prothrombin Time 13.6 12.2-14.7 SEC INR Comment 1.0 0.8-1.4 Activated Partial Thromboplast Time 26 24-35 SEC My Orders Orders - SABRINA AGUILERA DO Tranexamic Acid Injection (Cyklokapron I (05/10/17 03:45) Tranexamic Acid Injection (Cyklokapron I (05/10/17 03:38) Cbc With Automated Diff (05/10/17 03:42) Protime With Inr (05/10/17 03:42) Partial Thromboplastin Time (05/10/17 03:42) Medications Given in ED Current Medications Medications Dose Ordered Sig/Mart Route Start Time Stop Time Status Last Admin Dose Admin Tranexamic Acid 10 MG/KG ONCE ONCE IV 05/10/17 03:45 05/10/17 03:46 DC 05/10/17 03:41 1,000 MG Vital Signs/I&O Vital Sign - Last 12Hours 05/10/17 05/10/17 03:24 06:17 Temp 98.0 98.0 Pulse 78 88 Resp 20 20 B/P (MAP) 119/75 (90) Pulse Ox 97 100 O2 Delivery Room Air Room Air Blood Pressure Mean: 90 Progress Note : Progress Note PT ADVISED TO FOLLOW UP WITH RELAY TESTER AT DR. SPRINGER'S OFFICE TOMORROW ( DR. SPRINGER OUT OF TOWN UNTIL 05/14/17 ) OR SOONER IF BLEEDING STARTS AGAIN. RETURN TO ER IF BLEEDING IS SEVERE. Departure Impression Impression: Primary Impression: Epistaxis Additional Impression: Isatu's granulomatosis Disposition: 01 HOME, SELF-CARE Condition: Improved Departure-Patient Inst. Referrals: STEVIE SPRINGER MD, WILLIAM J DO (PCP/Family) Primary Care Physician Patient Instructions: Nosebleeds (DC) Add. Discharge Instructions: LEAVE PACKING IN PLACE DO NOT BLOW OR RUB NOSE AND TRY TO AVOID SNEEZING FOLLOW UP WITH DR SPRINGER'S OFFICE TOMORROW FOR RECHECK, OR SOONER IF YOU START TO BLEED AGAIN IF BLEEDING IS SEVERE, RETURN TO ER All discharge instructions reviewed with patient and/or family. Voiced understanding. Scripts Sulfamethoxazole/Trimethoprim (Bactrim Ds Tablet) 1 Each Tablet 1 EACH PO BID, #20 TAB Prov: SABRINA AGUILERA DO 05/10/17 SABRINA AGUILERA DO May 10, 2017 05:57
[2017-05-10 06:17] VITALS: BP 115/88
== END 2017-05-10 06:17 | disposition home or self-care (01) ==
LOC: EDUNIT# 03:04 → ER 03:06
DX: M31.30 Wegener's granulomatosis without renal involvement (principal); I10 Essential (primary) hypertension; E03.9 Hypothyroidism, unspecified; E11.9 Type 2 diabetes mellitus without complications; K21.9 Gastro-esophageal reflux disease without esophagitis; I25.10 Atherosclerotic heart disease of native coronary artery without angina pectoris; G47.30 Sleep apnea, unspecified; Z95.5 Presence of coronary angioplasty implant and graft; Z79.02 Long term (current) use of antithrombotics/antiplatelets; Z79.52 Long term (current) use of systemic steroids; Z79.82 Long term (current) use of aspirin; Z88.8 Allergy status to other drugs, medicaments and biological substances
CPT/HCPCS: 36415; 85025; 85610; 85730; 96360; 99282

== ENCOUNTER → 2017-11-01 | Outpatient (CLI) | payer OTHER ==
[~2017-11-01] MED LIST changes: +CATHETER FLUSH 10 ML SYR IV PRN; +IOHEXOL 350 MG/ML 100 ML (OMNIPAQUE 350) VIAL IV ONE; +NS 250 ML (IVPB) BAG IV ONE; +SULF1TAB35 PO
--- NOTE | 2017-11-01 18:59 | Diagnostic Imaging Report ---
CLINICAL INDICATION: Patient with Isatu's disease. Disease is destroying patient's hearing. Patient says there might be a growth in the right ear. EXAM: CT scan of the IACs performed with 80 cc of Omnipaque 350 IV contrast. Coronal reformatted images are created. COMPARISON: MRI of the brain performed without and with IV contrast dated 05/27/2009. FINDINGS: The bilateral temporal bone structures show complete consolidation of the mastoid air cells and middle ear regions. There is consolidation to the aditus ad antrum bilaterally. There is slight medial concavity of the tympanic membranes bilaterally. There is no evidence of bony erosions or destructive process seen. There are sclerotic changes of the bilateral mastoid air cells which may be from chronic mastoiditis changes. Otherwise, the remainder of the temporal bone structures are unremarkable. The IACs, inner ears, middle ears, and external auditory canals show no other significant abnormality. The bilateral middle ear ossicular chains are intact as visualized. The scutum is intact. The oval and round windows are patent. There is no evidence of semicircular canal dehiscence. The visualized temporal bone portions of cranial nerve VII has normal appearance. No evidence of aberrant vascular structures. The vestibular aqueducts have normal appearance bilaterally. The tegmen tympani and tegmen mastoideum appear intact bilaterally. There is groundglass thickening of the anterior sphenoid wing region anterior skull base which may be related to Isatu's disease from chronic changes. Fibrous osseous defect cannot be completely excluded. There are erosive changes of the ethmoid cavity and widening of the nasal cavity regions. The bilateral maxillary sinuses are partially visualized and show mild thickening and adjacent bony thickening/sclerotic changes. The visualized extracranial soft tissues and paranasal sinuses are unremarkable. There is no enhancing mass. IMPRESSION: 1: There is complete consolidation of the bilateral mastoid air cells and middle ear regions. There is no evidence of erosive or destructive process. 2: Besides chronic bony sclerotic changes possibly from chronic bilateral mastoiditis, the remainder of the temporal bone structures are unremarkable. 3: There is bony thickening and sclerotic changes involving the anterior skull base/sphenoid region which may be from Isatu's granulomatosis. Fibrous osseous defects cannot be completely excluded. Dictated by: Dictated on workstation # [id number]
== END ==
LOC: RAD 16:35
PROVIDERS: ATTEND Otolaryngology
DX: A50.02 Early congenital syphilitic osteochondropathy (principal); M90.80 Osteopathy in diseases classified elsewhere, unspecified site; I87.8 Other specified disorders of veins
CPT/HCPCS: 70481

== ENCOUNTER → 2018-04-06 | Outpatient (CLI) | payer OTHER ==
[~2018-04-06] MED LIST changes: -CATHETER FLUSH 10 ML SYR IV PRN; -IOHEXOL 350 MG/ML 100 ML (OMNIPAQUE 350) VIAL IV ONE; -NS 250 ML (IVPB) BAG IV ONE
--- NOTE | 2018-04-06 10:31 | Diagnostic Imaging Report ---
PROCEDURE: MRI lumbar spine. TECHNIQUE: Multiplanar, multisequence MRI of the lumbar spine was performed without contrast. INDICATION: Back pain radiating to the left. FINDINGS: There is normal height and alignment of the lumbar vertebral bodies. There is mild degenerative disc and facet disease present with no focal disc herniation or bony stenosis seen at any level. No nerve root impingement is seen. There is no mass. There is no acute bony abnormality. IMPRESSION: There is mild degenerative disc and facet disease present but no focal disc herniation or bony stenosis seen. Dictated by: Dictated on workstation # [id number]
== END ==
LOC: RAD 09:27
PROVIDERS: ATTEND Internal Medicine
DX: M51.36 Other intervertebral disc degeneration, lumbar region (principal)
CPT/HCPCS: 72148

== ENCOUNTER 2018-05-31 09:00 | Outpatient (RCR) | payer OTHER | END 2018-07-05 09:26 | disposition home or self-care (01) | PROVIDERS: ATTEND Internal Medicine | DX: M54.5 Low back pain (principal) ==

== ENCOUNTER → 2018-06-03 | Outpatient (CLI) | payer OTHER ==
--- NOTE | 2018-06-03 08:05 | Diagnostic Imaging Report ---
PROCEDURE: US Gallbladder. TECHNIQUE: Multiple real-time grayscale images were obtained over the right upper quadrant in various projections. INDICATION: Right upper quadrant pain with nausea. The gallbladder appeared normal. No wall thickening, abnormal distention or intraluminal sludge or stone. Hepatic echotexture is elevated consistent with at least some degree of fatty infiltration. No intra-or extrahepatic bile duct dilatation is apparent. The pancreas is obscured by gas. The right kidney appeared normal and was unobstructed. IMPRESSION: Probable hepatic steatosis, no biliary abnormality, ascites or fluid collection. Shadowing bowel gas limits visualization of the pancreas and extrahepatic ducts. No acute finding is apparent. Dictated by: Dictated on workstation # [id number]
== END ==
LOC: RAD 06:52
PROVIDERS: ATTEND Internal Medicine
DX: R10.11 Right upper quadrant pain (principal); R11.0 Nausea
CPT/HCPCS: 76705

== ENCOUNTER → 2019-03-19 | Outpatient (CLI) | payer OTHER ==
[~2019-03-19] VITALS: Ht 167 cm; Wt 98.0 kg
[~2019-03-19] MED LIST changes: +CATHETER FLUSH 10 ML SYR IV PRN
[2019-03-19 13:41] VITALS: BP 149/73
--- NOTE | 2019-03-19 23:50 | STRESS TEST ---
DATE OF SERVICE: 03/19/2019 EXERCISE MYOVIEW STRESS TEST REPORT REFERRING PHYSICIAN: Dr. Beaulieu. Baseline heart rate is 66. Baseline blood pressure 149/73. Baseline EKG is sinus rhythm with no ischemic changes. In summary, the patient was injected with 10.35 mCi of technetium-99 Myoview. Then, the patient started exercising with a baseline heart rate, blood pressure and EKG mentioned above. The patient was able to exercise for 7 minutes and 30 seconds on standard Don protocol. With peak exercise level, EKG was showing nondiagnostic changes. During recovery, heart rate and blood pressure returned to baseline. EKG returned to baseline. The resting and stress images were reviewed and compared in the short axis, horizontal long axis, and vertical long axis views. Review of the images showed good radiotracer uptake. There are no significant ischemic changes. SSS is 0. TID value 1.04. On the gated images, the left ventricle appeared to be normal size with normal contractility. Calculated ejection fraction 65%. CONCLUSION: 1. Fair exercise tolerance, a total of 7 minutes 30 seconds on standard Don protocol, total of 9.1 METS achieving 92% of maximum expected heart rate. 2. Baseline EKG abnormality with nondiagnostic changes with exercise returned to baseline during recovery. 3. No significant ischemia or infarction on SPECT images. 4. Normal left ventricular size with normal contractility. Calculated ejection fraction 65%. Job ID: [id number] DocumentID: [id number] Dictated Date: 03/19/2019 17:22:42 Drip Molder Date: 03/19/2019 23:50:13 Dictated By: ALEA JAVED MD
== END ==
LOC: CARD 12:39
PROVIDERS: ATTEND Internal Medicine Cardiovascular Disease
DX: I25.10 Atherosclerotic heart disease of native coronary artery without angina pectoris (principal); I10 Essential (primary) hypertension; I63.9 Cerebral infarction, unspecified; I65.23 Occlusion and stenosis of bilateral carotid arteries
CPT/HCPCS: 78452; 93017

== ENCOUNTER → 2019-03-20 | Outpatient (CLI) | payer OTHER ==
[~2019-03-20] MED LIST changes: -CATHETER FLUSH 10 ML SYR IV PRN
== END ==
LOC: CARD 14:15
PROVIDERS: ATTEND Internal Medicine Cardiovascular Disease
DX: I08.1 Rheumatic disorders of both mitral and tricuspid valves (principal); I63.9 Cerebral infarction, unspecified; I25.10 Atherosclerotic heart disease of native coronary artery without angina pectoris; I10 Essential (primary) hypertension
CPT/HCPCS: 93306

== ENCOUNTER 2019-03-26 09:04 | Outpatient (RCR) | payer OTHER | END 2019-05-20 | disposition home or self-care (01) | PROVIDERS: ATTEND Internal Medicine | DX: M54.32 Sciatica, left side (principal) ==

== ENCOUNTER → 2019-09-12 | Outpatient (CLI) | payer OTHER ==
--- NOTE | 2019-09-12 14:10 | Diagnostic Imaging Report ---
PROCEDURE: MRI lumbar spine. TECHNIQUE: Multiplanar, multisequence MRI of the lumbar spine was performed without contrast. INDICATION: Low back pain. COMPARISON: 04/06/2018. FINDINGS: Trace retrolisthesis grade 1 of L1 on L2 unchanged. Trace retrolisthesis grade 1 L5 on S1 unchanged. Chronic T12 mid and anterior third superior endplate concavity without marrow edema unchanged. Lumbar statures themselves are normal. The lower thoracic cord, the conus, and the nerves of the cauda equina are unremarkable. There is no paravertebral mass, hemorrhage, or fluid collection. T12-L1: No significant stenosis. L1-L2: Bulging disc material effaces the ventral epidural fat but does not result in a substantial degree of canal stenosis. There is borderline mild biforaminal narrowing. L2-L3: This level and disc stable and unremarkable without stenosis. L3-L4: Disc bulge diffusely is present. This results in a mild degree of bilateral foraminal narrowing. No significant canal or recess encroachment. L4-L5: Disc bulge right paramedian has progressed in the interim, with disc material now extending upwards posterior to the L4 vertebral body. This indents the ventral epidural fat and mildly effaces the ventral thecal sac. There is mild canal stenosis. No encroachment upon the lateral recesses. There is moderate left and mild right neuroforaminal stenosis having increased. L5-S1: Disc desiccation, bulge, and endplate osteophytes result in slight indentation of the ventral thecal sac but not significantly narrowing the spinal canal. This patient has unchanged moderate degrees of bilateral foraminal narrowing. IMPRESSION: Progressive disc displacement at L4-L5 with increased foraminal stenoses. No high-grade canal narrowing. Stable multilevel grade 1 listhesis and stable old T12 superior endplate compression. Dictated by: Dictated on workstation # [id number]
== END ==
LOC: RAD 09:55
PROVIDERS: ATTEND Nurse Practitioner
DX: M51.16 Intervertebral disc disorders with radiculopathy, lumbar region (principal); M43.16 Spondylolisthesis, lumbar region; M48.061 Spinal stenosis, lumbar region without neurogenic claudication
CPT/HCPCS: 72148

== ENCOUNTER → 2019-09-19 | Outpatient (CLI) | payer OTHER ==
[~2019-09-19] MED LIST changes: +CATHETER FLUSH 10 ML SYR IV PRN
--- NOTE | 2019-09-19 12:39 | Diagnostic Imaging Report ---
EXAMINATION: Nuclear medicine hepatobiliary scan INDICATION: Right upper quadrant pain There are no prior nuclear medicine studies available for comparison. The gallbladder ultrasound exam performed on 06/03/2018 failed to show any sign of cholelithiasis or acute cholecystitis. This study was performed following administration of 5.3 mCi Choletec. One can of ensure was also given for the ejection fraction calculation. There is uptake of the radiotracer by the gallbladder for 30 minutes. This would weight against the diagnosis of acute cholecystitis. There is also extension of the radiotracer into the small bowel indicating the common bile duct is not obstructed. The ejection fraction is 53.9%. And within normal limits. IMPRESSION: 1. There is no evidence for acute cholecystitis or for obstruction of the common bile duct. 2. The ejection fraction is 53.9% and within normal limits. Dictated by: Dictated on workstation # [id number]
== END ==
LOC: CARD 09:51
PROVIDERS: ATTEND Internal Medicine
DX: R10.13 Epigastric pain (principal); R10.11 Right upper quadrant pain
CPT/HCPCS: 78227; A9537

== ENCOUNTER → 2021-01-19 | Outpatient (CLI) | payer MEDICARE, OTHER ==
[~2021-01-19] MED LIST changes: -CATHETER FLUSH 10 ML SYR IV PRN; -SULF1TAB35 PO; +SULF1TAB38 PO
== END ==
LOC: LABNPT 06:38
PROVIDERS: ATTEND Otolaryngology Otolaryngology/Facial Plastic Surgery
DX: Z01.812 Encounter for preprocedural laboratory examination (principal); G47.33 Obstructive sleep apnea (adult) (pediatric); U07.1 COVID-19
CPT/HCPCS: 87635

== ENCOUNTER 2021-01-21 19:53 | Outpatient (CLI) | payer MEDICARE, OTHER | END 2021-01-22 06:11 | disposition home or self-care (01) | LOC: SLEEP 19:53 | PROVIDERS: ATTEND Otolaryngology Otolaryngology/Facial Plastic Surgery | DX: G47.33 Obstructive sleep apnea (adult) (pediatric) (principal) | CPT/HCPCS: 95811 ==

== ENCOUNTER → 2022-05-03 | Outpatient (CLI) | payer MEDICARE, OTHER ==
[~2022-05-03] MED LIST changes: +CATHETER FLUSH 10 ML SYR IVP PRN
[2022-05-03 09:35] VITALS: BP 153/81
[2022-05-03 09:47] VITALS: BP 167/97
--- NOTE | 2022-05-03 13:35 | Cardiology Stress Test Report ---
Stress Test Report Date of Procedure/Referring: Date of Procedure: May 03, 2022 PCP Greg Beaulieu DO Admitting Physician Admitting Physician: Attending Physician: Ema Streeter MD Baseline Blood Pressure: Blood Pressure Systolic: 167 Blood Pressure Diastolic: 97 Vital Signs Date Time Temp Pulse Resp B/P (MAP) Pulse Ox O2 Delivery O2 Flow Rate FiO2 05/03/22 09:35 68 153/81 (105) 05/03/22 09:47 19 99 Baseline Vital Signs Vital Signs Date Time Temp Pulse Resp B/P (MAP) Pulse Ox O2 Delivery O2 Flow Rate FiO2 05/03/22 09:35 68 153/81 (105) 05/03/22 09:47 19 99 Baseline EKG: Baseline EKG: NSR Summary: After explaining the procedure and details to the patient, he signed the consent and was brought to the stress nuclear laboratory. Patient exercised on standard Don protocol, EKG, heart rate and blood pressure were monitored continuously, resting and stress doses of radio tracer were injected, imaging was acquired and reviewed in the short axis, horizontal long axis and vertical long axis views Patient was able to exercise for a total of 5 minutes on Don protocol, METs 208/101 Maximum heart rate 130 Maximum blood pressure 208/101 Stress EKG, Minimal nondiagnostic changes Recovery EKG, Return to baseline TID: 1.01 SSS: 7 SDS: 5 EF: 63 Conclusion: 1. Good exercise tolerance for 5 minutes/7.0 METS achieving 84% of maximal expected heart rate 2. Appropriate heart rate response to exercise with severe hypertensive response to exercise with peak blood pressure 208/101 return to baseline during recovery 3. Nondiagnostic EKG changes with exercise return to baseline during recovery 4. Extracardiac attenuation with diaphragmatic attenuation with mild decrease uptake involving the mid to apical inferior wall and anterior apical segment with mild reversibility 5. Normal left ventricular size, ejection fraction 63% Copy Copies To 1: GREG BEUALIEU BASHAR J MD May 03, 2022 13:35
== END ==
LOC: CARD 08:14
PROVIDERS: ATTEND Internal Medicine Cardiovascular Disease
DX: I10 Essential (primary) hypertension (principal); I25.10 Atherosclerotic heart disease of native coronary artery without angina pectoris
CPT/HCPCS: 78452; 93017; A9502

== ENCOUNTER → 2022-05-04 | Outpatient (CLI) | payer MEDICARE, OTHER ==
[~2022-05-04] MED LIST changes: -CATHETER FLUSH 10 ML SYR IVP PRN
== END ==
LOC: CARD 10:06
PROVIDERS: ATTEND Internal Medicine Cardiovascular Disease
DX: I10 Essential (primary) hypertension (principal); I25.10 Atherosclerotic heart disease of native coronary artery without angina pectoris
CPT/HCPCS: 93306

== ENCOUNTER 2022-05-10 06:38 | Day surgery (SDC) | payer MEDICARE, OTHER ==
[~2022-05-10] VITALS: Ht 167.6 cm; Wt 85.0 kg
[2022-05-10] VITALS (21 sets, daily range): BP systolic 94–167; BP diastolic 52–81
[2022-05-10] MEDS ORDERED: NS IV 1000 ML 1,000 ML ONE (06:56)
[2022-05-10] MEDS ORDERED: HEParin (CATH LAB) 2,000 ML IV ONE (06:56)
[2022-05-10] MEDS ORDERED: LIDOCAINE 1% INJ 20 ML VIAL ONE (06:56)
[2022-05-10] MEDS ORDERED: NS IV 1000 ML 1,000 ML IV SCH (07:00)
[2022-05-10 07:22] LABS: HEMATOCRIT 42 % (40-54); HEMOGLOBIN 14.5 g/dL (13.3-17.7); MEAN CORPUSCULAR HEMOGLOBIN 33 pg (25-34); MEAN CORPUSCULAR HGB CONC 35 g/dL (32-36); MEAN CORPUSCULAR VOLUME 94 fL (80-99); MEAN PLATELET VOLUME 9.7 fL (9.0-12.2); PLATELET COUNT 263 10^3/uL (130-400)
[2022-05-10 07:27] LABS: BILIRUBIN,URINE NEGATIVE (NEGATIVE); CLARITY,URINE CLEAR; COLOR,URINE YELLOW; GLUCOSE, URINE (UA) 2+ (NEGATIVE); KETONES,URINE NEGATIVE (NEGATIVE); LEUKOCYTE ESTERASE ,URINE NEGATIVE (NEGATIVE); NITRITE,URINE NEGATIVE (NEGATIVE); PH,URINE 5.5 (5-9); PROTEIN,URINE TRACE (NEGATIVE)
[2022-05-10 07:34] LABS: BACTERIA,URINE NEGATIVE /HPF; SQUAMOUS EPITHELIAL CELL,UR 0-2 /HPF; WBC,URINE RARE /HPF
--- NOTE | 2022-05-10 07:35 | Cardiac Procedure Note-CS/ASA ---
Pre-Procedure Note Pre-Op Procedure Note Date of Available H&P: May 04, 2022 Date H&P Reviewed: May 10, 2022 Time H&P Reviewed: 07:35 History & Physical: H&P Reviewed, Patient Examed, No changes noted Pre-Operative Diagnosis: CAD Conscious Sedation Pre-Proced Time 07:35 ASA Score 3 For ASA 3 and 4: Consider anesthesia and medical clearance. Also, for patients with a history of failed moderate sedation consider anesthesia. Airway Lungs Heart ASA score ASA 1: a normal healthy patient ASA 2: a patient with a mild systemic disease (mid diabetes, controlled hypertension, obesity ASA 3: a patient with a severe systemic disease that limits activity (angina, COPD, prior Myocardial infarction) ASA 4: a patient with an incapacitating disease that is a constant threat to life (CHF, renal failure) ASA 5: a moribund patient not expected to survive 24 hrs. (ruptured aneurysm) ASA 6: a declared brain- patient whose organs are being harvested. For emergent operations, add the letter E after the classification Mallampati Classification Grade 3 Sedation Plan Analgesia, Amnesia, Plan communicated to team members, Discussed options with patient/fam, Discussed risks with patient/fam The patient is an appropriate candidate to undergo the planned procedure, sedation, and anesthesia. The patient immediately re-assessed prior to indication. ALEA JAVED MD May 10, 2022 07:35
[2022-05-10 07:40] LABS: INR 0.9 (0.8-1.4); PROTHROMBIN TIME PATIENT 12.8 SEC (12.2-14.7)
[2022-05-10] MEDS ORDERED: MIDAZOLAM 5 MG/5 ML (VERSED) VIAL ONE (07:40)
[2022-05-10] MEDS ORDERED: HEParin 1000 UNIT/ML (10ML VIAL) FOR BOLUS ONE (07:40)
[2022-05-10] MEDS ORDERED: VERAPAMIL 5 MG/2 ML (CALAN) VIAL IV ONE (07:40)
[2022-05-10] MEDS ORDERED: NITRO DRIP 25000 MCG/D5W 250 ML IV ONE (07:40)
[2022-05-10] MEDS ORDERED: fentaNYL INJ 100 MCG/2 ML AMP ONE (07:40)
[2022-05-10] MEDS ORDERED: ATOR40TA70 PO (07:46)
[2022-05-10] MEDS ORDERED: LISI10TA25 PO (07:46)
[2022-05-10] MEDS ORDERED: ASPI-1238 PO (07:46)
[2022-05-10] MEDS ORDERED: LEVO112C4 PO (07:46)
[2022-05-10] MEDS ORDERED: CARV6.252 PO (07:46)
[2022-05-10] MEDS ORDERED: PRED5TAB PO (07:46)
[2022-05-10] MEDS ORDERED: SULF-221 PO (07:46)
[2022-05-10] MEDS ORDERED: FAMO20TA3 PO (07:46)
[2022-05-10] MEDS ORDERED: METF-397 PO (07:46)
[2022-05-10] MEDS ORDERED: CLOP75TA28 PO (07:46)
[2022-05-10 07:48] LABS: ALBUMIN 4.2 GM/DL (3.2-4.5); BILIRUBIN,TOTAL 0.9 MG/DL (0.1-1.0); CALCIUM 9.1 MG/DL (8.5-10.1); CREATININE SERUM 1.3 MG/DL (0.60-1.30); POTASSIUM 3.8 MMOL/L (3.6-5.0); TOTAL PROTEIN 6.7 GM/DL (6.4-8.2)
--- NOTE | 2022-05-10 07:59 | Diagnostic Imaging Report ---
Indication: Abnormal stress test. Pre-operative evaluation. COMPARISON: CT of the chest performed 04/27/2017. Findings: The diaphragms are flattened compatible with a component of air trapping. There is no significant effusion identified or findings of a pneumothorax. There are linear discoid opacities present within both of the lung apices that are likely regions of scarring related to the patient's prior cavitary pulmonary masses. These reportedly related to a known history of Isatu's granulomatosis. There appears to be some parenchymal distortion about the inferior aspect of the right hilum. There are no current findings of edema or overt failure. IMPRESSION: 1. Pulmonary hyperinflation with parenchymal opacities and distortion likely secondary to the sequela of the patient's prior cavitary masses from known Isatu's granulomatosis. By plain radiography there is no new acute cardiopulmonary process evident. A follow-up with repeat CT may be useful for further characterization and to establish a new baseline if clinically appropriate. Dictated by: Dictated on workstation # [id number]
[2022-05-10] MEDS ORDERED: CLOPIDOGREL 300 MG (PLAVIX) TABLET PO ONE (08:53)
[2022-05-10] MEDS ORDERED: ASPIRIN 325 MG (5 GR) TABLET ONE (08:53)
[2022-05-10] MEDS ORDERED: PATIENT MAY USE OWN MEDS, ALL PO SCH (09:15)
--- NOTE | 2022-05-10 09:18 | Cardiac Cath Report ---
Cardiac Cath Report Physician (s)/Manufacturing Storeperson (s) Physician ALEA JAVED MD Pre-Procedure Diagnosis Pre-Procedure Diagnosis: CAD Post-Procedure Note Procedure Start Date: May 10, 2022 Name of Procedure: Left heart cath IFR to the LAD Stenting to the LAD Findings/Procedure Note PROCEDURE NOTE: 66-year-old gentleman with known history of coronary artery disease, had an abnormal stress test, scheduled for cardiac catheterization possible PTCA. After explaining the procedure to the patient, all pros and cons were explained, all questions were answered. The patient signed the consent and then he was placed in the cardiac catheterization laboratory. Groin was prepped in SL fashion local anesthesia was used. Attempt to access the right radial artery, was unable to advance a wire through the artery due to tortuosity. Procedure was aborted. Sheath placed in the right femoral artery. Karen' right and left catheter were used to access the coronary system. Karen right catheter was prolapsed to the left ventricular cavity, pressure was measured. Patient was given a total of 6000 units of heparin, Karen left guide was advanced patient have 90% lesion in the mid LAD, IFR wire was used and it was 0.83. I proceeded with primary stenting using 2.5 x 18 mm edel point stent expanded to 2.7 mm under 14 moisés, angiogram showed excellent results, IFR postintervention was 0.83. Prestenosis lesion was 90% post intervention was 0%, followed the stent there was a 10% stenosis. At the end of the procedure the sheath was removed. Closure device was deployed FINDINGS: Hemodynamics LV 147/14, end-diastolic of 14 Aorta 119/68 mean of 63 ANATOMY: Left Main is free of obstructive disease Left Anterior Descending is heavily calcified proximally with 90% stenosis at the midportion successful stenting using edel point stent 2.5 x 18 mm expanded to 2.7 mm with 0% residual stenosis. Followed the stent at the mid to distal region there was a 10% stenosis. Left Circumflex has a patent stent and obtuse marginal branch has a patent stent, ostial obtuse marginal branch has 50% stenosis that is nonobstructive disease Right Coronary Artery is dominant artery with 50% stenosis proximally LV Gram was not done, pressure was measured PERCUTANEOUS INTERVENTION: Pre stenosis 90% Post Stenosis 0% Pre TANNER flow 2 Post TANNER flow 3 Dominance right coronary artery CONCLUSION: 1. 90% stenosis in the mid LAD successful stenting using edel point 2.5 x 18 mm expanded to 2.7 mm with 0% residual stenosis, distally in the LAD there is a 10% stenosis 2. Patent stent in the circumflex and obtuse marginal branch with 50% ostial obtuse marginal branch stenosis nonobstructive disease 3. 50% proximal right coronary artery stenosis 4. Normal left ventricular end-diastolic pressure DISCUSSION AND RECOMMENDATION: I am planning to repeat stress test and evaluate for ischemia if there is improvement. I did not proceed with IFR to the right coronary artery and circumflex artery to limit the exposure to contrast due to the underlying mild renal insufficiency Anesthesia Type: Conscious Sedation Estimated blood loss (mL): 25 ml Contrast Amount: 90 ml Total Radiation Dose: 871 mGy Post-Procedure Diagnosis Post-operative diagnosis: Coronary artery disease Hypertension Hyperlipidemia Diabetes mellitus ALEA JAVED MD May 10, 2022 09:18
[2022-05-10] MEDS: NS IV 1000 ML 1,000 ML IV SCH ×3 (19:15→20:02)
[2022-05-10] MEDS ORDERED: FAMOTIDINE 20 MG (PEPCID) TABLET PO SCH (21:00)
[2022-05-11 03:21] VITALS: BP 124/59
[2022-05-11 05:25] LABS: HEMATOCRIT 37 % (40-54); HEMOGLOBIN 12.4 g/dL (13.3-17.7); MEAN CORPUSCULAR HEMOGLOBIN 32 pg (25-34); MEAN CORPUSCULAR HGB CONC 34 g/dL (32-36); MEAN CORPUSCULAR VOLUME 94 fL (80-99); MEAN PLATELET VOLUME 9.8 fL (9.0-12.2); PLATELET COUNT 205 10^3/uL (130-400); WHITE BLOOD COUNT 8.5 10^3/uL (4.3-11.0)
[2022-05-11 05:43] LABS: POTASSIUM 3.8 MMOL/L (3.6-5.0)
[2022-05-11 05:48] LABS: CREATININE SERUM 0.88 MG/DL (0.60-1.30)
[2022-05-11] MEDS ORDERED: LEVOTHYROXINE 112 MCG (LEVOTHROID) TAB PO SCH (06:30)
[2022-05-11 07:51] VITALS: BP 137/62
[2022-05-11] MEDS ORDERED: lisINopril 10 MG (PRINIVIL) TABLET PO SCH (09:00)
[2022-05-11] MEDS ORDERED: CLOPIDOGREL 75 MG (PLAVIX) TABLET PO SCH (09:00)
[2022-05-11] MEDS ORDERED: predniSONE 5 MG TAB PO SCH (09:00)
[2022-05-11] MEDS ORDERED: ASPIRIN E.C. 81 MG (ECOTRIN) TAB PO SCH (09:00)
--- NOTE | 2022-05-11 12:32 | Cardiology Progress Note ---
Subjective Date Seen by Provider: May 11, 2022 Time Seen by Provider: 08:00 Subjective/Events-last exam Patient was seen at bedside, laying down comfortably, feeling well. Objective-Cardiology Exam Last Set of Vital Signs Vital Signs 05/11/22 05/11/22 07:51 08:00 Temp 36.2 Pulse 80 Resp 23 B/P (MAP) 137/62 (87) Pulse Ox 98 O2 Delivery Room Air I&O Intake and Output 05/11/22 00:00 Intake Total 690 ml Output Total 650 ml Balance 40 ml Intake Oral 690 ml Output Urine Total 650 ml Daily Weight Change No General: Alert, Oriented X3, Cooperative HEENT: Atraumatic, PERRLA Neck: Supple, No JVD, No Thyromegaly Lungs: Clear to Auscultation, Normal Air Movement Heart: Regular Rate, Normal S1, Normal S2, No Murmurs Abdomen: Normal Bowel Sounds, Soft, No Tenderness, No Hepatosplenomegaly, No Masses Extremities: No Clubbing, No Cyanosis, No Edema, Normal Pulses, No Tenderness/Swelling Skin: No Rashes, No Breakdown, No Significant Lesion Neuro: Normal Gait, Normal Speech, Strength at 5/5 X4 Ext, Normal Tone, Sensation Intact Psych/Mental Status: Mental Status NL, Mood NL Results Lab Laboratory Tests 05/11/22 05:05 A/P-Cardiology Admission Diagnosis Coronary artery disease Hypertension Hyperlipidemia Assessment/Plan Coronary artery disease, status post stenting to the LAD Doing well Hypertension, continue current medication Hyperlipidemia, monitor lipids BMI 30, discussed weight loss ALEA JAVED MD May 11, 2022 12:32
== END 2022-05-11 09:45 | disposition home or self-care (01) ==
LOC: CATH 06:38 → CSD 09:15 → CATH 05-11 09:45
PROVIDERS: ATTEND Internal Medicine Cardiovascular Disease
DX: I25.10 Atherosclerotic heart disease of native coronary artery without angina pectoris (principal); I10 Essential (primary) hypertension; E78.2 Mixed hyperlipidemia; E11.9 Type 2 diabetes mellitus without complications; E66.9 Obesity, unspecified; I65.29 Occlusion and stenosis of unspecified carotid artery; Z79.82 Long term (current) use of aspirin; Z79.02 Long term (current) use of antithrombotics/antiplatelets; Z79.84 Long term (current) use of oral hypoglycemic drugs; Z68.30 Body mass index [BMI] 30.0-30.9, adult
CPT/HCPCS: 71045; 80048; 80053; 80061; 81000; 82947; 85027 ×2; 85610; 85730; 87081; 93005 ×2; 93458; 93571; C1760; C1769; C1874; C1887; C1894; C9600; 36415